=== PATIENT | female | born 1990 | race Caucasian/White ===

== ENCOUNTER 2018-01-06 00:29 | Emergency (ER) | payer SELFPAY ==
[2018-01-06] MEDS ORDERED: NA CHLORIDE 0.9% 1,000 ML ONE (01:24)
[2018-01-06] MEDS ORDERED: FENTANYL CITR 100 MCG/2 ML ONE (01:24)
[2018-01-06] MEDS ORDERED: ONDANSETRON 4 MG/2 ML VIAL ONE (01:25)
[2018-01-06 01:31] LABS: Absolute Lymphocytes (CBC) 3.3 K/uL (0.7-4.9); Absolute Monocytes 0.8 K/uL (0.1-1.3); Absolute Neutrophil 14.9 K/uL (1.8-8.0); Basophils % 0.4 % (0-1.3); Eosinophils % 0.2 % (0-4.4); Hematocrit 38.8 % (36.0-45.0); Lymphocytes % 17.2 % (15.3-44.8); MCH 27.4 pg (27.0-35.0); MPV 8.8 fL (7.6-11.3); Monocytes % 4.3 % (3.3-12.3); RBC Red Blood Cell Count 4.51 M/uL (3.86-4.86)
[2018-01-06 01:34] LABS: Protime INR 1.08
[2018-01-06 01:58] LABS: Potassium 3.6 mEq/L (3.6-5.0)
[2018-01-06 02:29] LABS: Urine Blood 3+ (NEG); Urine Glucose NEGATIVE (NEG); Urine Protein 1+ (NEG); Urine Specific Gravity >1.030 (1.005-1.030)
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
[2018-01-06] MEDS ORDERED: TRAMADOL HCL 50 MG TAB ONE (04:24)
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
== END 2018-01-06 04:49 | disposition home or self-care (01) ==
LOC: ER 00:29
DX: T14.8XXA Other injury of unspecified body region, initial encounter (principal); Y04.8XXA Assault by other bodily force, initial encounter; Y93.9 Activity, unspecified; Y92.009 Unspecified place in unspecified non-institutional (private) residence as the place of occurrence of the external cause
CPT/HCPCS: 36415; 70450; 70486; 70491; 71260; 74177; 76377; 80048; 80320; 81003; 81025; 85025; 85610; 85730; 86850; 86900; 86901; 96374; 96375; 99285; J2405; J3010; J7030; Q9967

== ENCOUNTER 2018-11-19 21:14 | Emergency (ER) | payer SELFPAY ==
[2018-11-19] MEDS ORDERED: IBUPROFEN 400 MG TAB ONE (21:57)
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
== END 2018-11-19 22:23 | disposition home or self-care (01) ==
LOC: ER 21:14
DX: S16.9XXA Unspecified injury of muscle, fascia and tendon at neck level, initial encounter (principal); S46.902A Unspecified injury of unspecified muscle, fascia and tendon at shoulder and upper arm level, left arm, initial encounter; S60.931A Unspecified superficial injury of right thumb, initial encounter; M25.562 Pain in left knee; M25.522 Pain in left elbow; Y04.2XXA Assault by strike against or bumped into by another person, initial encounter; Y93.9 Activity, unspecified; Y92.009 Unspecified place in unspecified non-institutional (private) residence as the place of occurrence of the external cause; Z04.71 Encounter for examination and observation following alleged adult physical abuse; Z88.6 Allergy status to analgesic agent
CPT/HCPCS: 99284